=== PATIENT | female | born 1980 | race American Indian/Alaskan Native ===

== ENCOUNTER 2018-11-10 12:12 | Emergency (ER) | payer SELFPAY ==
--- NOTE | 2018-11-10 12:25 | Emergency Department Report ---
Blank Doc - Documentation Documentation: This is a 38-year-old female that presents with right flank pain and dysuria. This initial assessment/diagnostic orders/clinical plan/treatment(s) is/are subject to change based on patient's health status, clinical progression and re- assessment by fellow clinical providers in the ED. Further treatment and workup at subsequent clinical providers discretion. Patient/guardians urged not to elope from the ED as their condition may be serious if not clinically assessed and managed. Initial orders include: 1- Patient sent to [facility] for further evaluation and treatment 2- UA
[2018-11-10 12:26] VITALS: BP 205/100
[2018-11-10 13:06] LABS: Bilirubin,Urine NEG (Negative); Color,Urine Yellow (Yellow)
[2018-11-10 13:07] LABS: Bacteria,Urine 4+ /HPF (Negative); Blood,Urine LG (Negative); Mucus,Urine FEW /HPF; Urobilinogen,Urine < 2.0 mg/dL (<2.0)
[2018-11-10 13:15] LABS: HCG Qualitative,Urine Negative (Negative)
== END 2018-11-10 14:53 | disposition left against medical advice (07) ==
LOC: ED 12:12
DX: R10.9 Unspecified abdominal pain (principal); R30.0 Dysuria; Z53.21 Procedure and treatment not carried out due to patient leaving prior to being seen by health care provider
CPT/HCPCS: 81001; 81025; 87076; 87086; 87186